=== PATIENT | male | born 1980 | race Caucasian/White ===

== ENCOUNTER 2016-11-05 15:08 | Outpatient (CLI) | payer OTHER ==
--- NOTE | 2016-11-05 17:50 | DIAGNOSTIC IMAGING REPORT ---
PROCEDURE: US RENAL VASCULAR - BILATERAL INDICATION: HYPERTENSION TECHNIQUE: Desir scale and color Doppler sonographic images of the kidneys were performed. Spectral waveform analysis was obtained of the renal arteries, intrarenal vessels, and aorta, including renal resistive indices and calculation of renal to aortic ratios. COMPARISON: None. FINDINGS: AORTIC VELOCITY: 64 cm/s RIGHT KIDNEY: Right kidney is of normal size 11.9 x 6.3 x 6.1 cm) with normal morphology. RIGHT RENAL ARTERY VELOCITIES: Right renal artery velocities are normal (proximal n/a cm/s; mid 50 eight cm/s; distal 53 cm/s). RIGHT RENAL AORTIC RATIO: Right renal to aortic ratios are normal (proximal n/a; mid 0.9 distal 0.82 RIGHT RENAL RESISTIVE INDICES: Right renal resistive indices are normal (upper pole 0.51 midpole 0.53 inferior pole 0.56 LEFT KIDNEY: Left kidney is of normal size 11.9 x 5.3 x 5.0 cm) with normal morphology. LEFT RENAL ARTERY VELOCITIES: Left renal artery velocities are normal (proximal 46 cm/s; mid 52 cm/s; distal 60 cm/s). LEFT RENAL AORTIC RATIO: Left renal to aortic ratios are normal (proximal 0.71 mid 0.81 distal 0.93 LEFT RENAL RESISTIVE INDICES: Left renal resistive indices are normal (upper pole 0.53 midpole 0.53 inferior pole 0.5 IMPRESSION: 1. Normal renal arteries
== END 2016-11-05 23:00 ==
LOC: US SRH 15:08
DX: I10 Essential (primary) hypertension (principal)

== ENCOUNTER 2016-12-03 15:41 | Outpatient (CLI) | payer OTHER ==
--- NOTE | 2016-12-03 18:35 | DIAGNOSTIC IMAGING REPORT ---
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 145 ml of Isovue 300 was injected intravenously, and axial images were obtained of the kidneys in the nephrographic phase, and subsequently through the entire abdomen and pelvis in the excretory phase. Axial CT images through the pelvis in the delayed phase were obtained. Sagittal and coronal reformations were created. COMPARISON: Ultrasound 11/05/2016 FINDINGS: NONCONTRAST ABDOMEN: No intrarenal calcifications. No unusual calcifications in the liver or spleen. No calcific atherosclerosis of the abdominal aorta. Moderate hepatic enlargement and diffuse hepatic steatosis. CONTRAST ABDOMEN: There is a single right renal artery and three small left renal arteries arising from the aorta. The kidneys uptake and excrete IV contrast uniformly and symmetrically. No renal cysts. No solid renal mass. The excretory images demonstrate no filling defects in the intrarenal or ureteral collecting system. The lung bases, gallbladder, adrenal glands, spleen, pancreas, stomach, upper bowel loops, and mesentery appear normal. NONCONTRAST PELVIS: No suspicious distal ureteral calcifications or hydroureter. No bladder calcifications. CONTRAST PELVIS: The urinary bladder demonstrates a uniformly mildly thickened wall which may be due to incomplete distention. No suspicious irregularity. No bladder mass or unusual enhancement. The reproductive organs are normal for age. Pelvic vessels are normal. No suspicious mass or free pelvic fluid. Minor grade 1 retrolisthesis L2 on three, L3 and L4, L4-5 and severe disc height loss L4-5 and L5-S1. IMPRESSION: 1. No visible renal or adrenal lesions. 2. Normal variant multiple left renal arteries. 3. Hepatomegaly and hepatic steatosis.. 4. Diffuse, fairly uniform thickening of the urinary bladder wall. Most likely related to under distention. Correlate clinically. All CT scans at this facility use dose modulation, iterative reconstruction, and/or weight-based dosing when appropriate to reduce radiation dose to as low as reasonably achievable.
== END 2016-12-03 23:00 ==
LOC: CT SRH 15:41
DX: R79.89 Other specified abnormal findings of blood chemistry (principal); R16.0 Hepatomegaly, not elsewhere classified; K76.0 Fatty (change of) liver, not elsewhere classified; N32.9 Bladder disorder, unspecified